=== PATIENT | female | born 1995 | race Two or more races ===

== ENCOUNTER 2023-09-23 09:43 | Outpatient (CLI) | payer OTHER | END 2023-09-23 09:44 | disposition home or self-care (01) | LOC: PRENATAL 09:43 | PROVIDERS: ATTEND Obstetrics & Gynecology Maternal & Fetal Medicine | DX: O26.843 Uterine size-date discrepancy, third trimester (principal); O36.8130 Decreased fetal movements, third trimester, not applicable or unspecified; O44.03 Complete placenta previa NOS or without hemorrhage, third trimester; Z3A.28 28 weeks gestation of pregnancy ==

== ENCOUNTER → 2023-09-30 09:42 | Outpatient (CLI) | payer OTHER | END | disposition home or self-care (01) | LOC: PRENATAL 09:42 | PROVIDERS: ATTEND Obstetrics & Gynecology Maternal & Fetal Medicine | DX: O36.8130 Decreased fetal movements, third trimester, not applicable or unspecified (principal); O36.5930 Maternal care for other known or suspected poor fetal growth, third trimester, not applicable or unspecified; Z3A.29 29 weeks gestation of pregnancy; O09.513 Supervision of elderly primigravida, third trimester; O36.0930 Maternal care for other rhesus isoimmunization, third trimester, not applicable or unspecified; O99.013 Anemia complicating pregnancy, third trimester ==

== ENCOUNTER 2023-10-14 11:01 | Outpatient (CLI) | payer OTHER | END 2023-10-14 11:02 | disposition home or self-care (01) | LOC: PRENATAL 11:01 | PROVIDERS: ATTEND Obstetrics & Gynecology Maternal & Fetal Medicine | DX: O26.843 Uterine size-date discrepancy, third trimester (principal); O36.8130 Decreased fetal movements, third trimester, not applicable or unspecified; O36.5930 Maternal care for other known or suspected poor fetal growth, third trimester, not applicable or unspecified; Z3A.31 31 weeks gestation of pregnancy; O09.513 Supervision of elderly primigravida, third trimester; O36.0930 Maternal care for other rhesus isoimmunization, third trimester, not applicable or unspecified; O99.013 Anemia complicating pregnancy, third trimester ==

== ENCOUNTER 2023-10-21 08:26 | Outpatient (CLI) | payer OTHER | END 2023-10-21 08:27 | disposition home or self-care (01) | LOC: PRENATAL 08:26 | PROVIDERS: ATTEND Obstetrics & Gynecology Maternal & Fetal Medicine | DX: O36.8199 Decreased fetal movements, unspecified trimester, other fetus (principal); O36.5990 Maternal care for other known or suspected poor fetal growth, unspecified trimester, not applicable or unspecified; O09.519 Supervision of elderly primigravida, unspecified trimester; O36.1999 Maternal care for other isoimmunization, unspecified trimester, other fetus; Z3A.32 32 weeks gestation of pregnancy ==

== ENCOUNTER 2023-10-29 08:38 | Outpatient (CLI) | payer OTHER | END 2023-10-29 08:39 | disposition home or self-care (01) | LOC: PRENATAL 08:38 | PROVIDERS: ATTEND Obstetrics & Gynecology Maternal & Fetal Medicine | DX: O26.843 Uterine size-date discrepancy, third trimester (principal); O36.8130 Decreased fetal movements, third trimester, not applicable or unspecified; O36.5930 Maternal care for other known or suspected poor fetal growth, third trimester, not applicable or unspecified; O09.513 Supervision of elderly primigravida, third trimester; O99.013 Anemia complicating pregnancy, third trimester; O36.0930 Maternal care for other rhesus isoimmunization, third trimester, not applicable or unspecified; Z3A.34 34 weeks gestation of pregnancy ==

== ENCOUNTER → 2023-11-04 08:52 | Outpatient (CLI) | payer OTHER | END | disposition home or self-care (01) | LOC: PRENATAL 08:52 | PROVIDERS: ATTEND Obstetrics & Gynecology Maternal & Fetal Medicine | DX: O26.849 Uterine size-date discrepancy, unspecified trimester (principal); O36.8199 Decreased fetal movements, unspecified trimester, other fetus; O36.5990 Maternal care for other known or suspected poor fetal growth, unspecified trimester, not applicable or unspecified; O09.519 Supervision of elderly primigravida, unspecified trimester; O36.1999 Maternal care for other isoimmunization, unspecified trimester, other fetus; O99.019 Anemia complicating pregnancy, unspecified trimester; Z3A.32 32 weeks gestation of pregnancy ==

== ENCOUNTER 2023-11-21 13:19 | Outpatient (CLI) | payer OTHER | END 2023-11-21 13:20 | disposition home or self-care (01) | LOC: PRENATAL 13:19 | PROVIDERS: ATTEND Obstetrics & Gynecology Maternal & Fetal Medicine | DX: O26.849 Uterine size-date discrepancy, unspecified trimester (principal); O36.8199 Decreased fetal movements, unspecified trimester, other fetus; O36.5990 Maternal care for other known or suspected poor fetal growth, unspecified trimester, not applicable or unspecified; O09.519 Supervision of elderly primigravida, unspecified trimester; O36.1999 Maternal care for other isoimmunization, unspecified trimester, other fetus; O99.019 Anemia complicating pregnancy, unspecified trimester; Z3A.36 36 weeks gestation of pregnancy ==

== ENCOUNTER 2023-12-09 07:34 | Inpatient (IN) | payer OTHER ==
[~2023-12-09] VITALS: Ht 165.1 cm; Wt 2.3 kg
[2023-12-09 08:07] VITALS: BP 125/81
[2023-12-09] MEDS ORDERED: IRON325 MG PO (08:35)
[2023-12-09] MEDS ORDERED: PRENATAL + DHA1 EACH PO (08:35)
[2023-12-09] MEDS ORDERED: MISOPROSTOL 25 MCG/4 ML GEL.W.APPL VAG NR (09:00)
[2023-12-09 09:23] LABS: URINE APPEARANCE Cloudy; URINE BILIRRUBIN Negative (NEGATIVE); URINE BLOOD Negative; URINE COLOR Yellow; URINE GLUCOSE Negative (NEGATIVE); URINE KETONE Negative (NEGATIVE); URINE LEUKOCYTE Large; URINE NITRATE Negative; URINE PROTEIN Trace (NEGATIVE)
[2023-12-09 09:25] LABS: HEMATOCRIT 29.3 % (36.0-45.00); MEAN CELL VOLUME 80.8 fL (80.00-100.00); MEAN CORPUSCULAR HGB CONC 33.2 g/dl (32.0-36.0); PLATELET COUNT 289 K/uL (150-450); RED BLOOD COUNT 3.63 M/uL (4.00-6.00); RED CELL DISTRIBUTION WIDTH 15.4 % (11.5-14.5)
[2023-12-09 09:27] LABS: URINE BACTERIA 3888.3 uL (0.0-1933); URINE EPITHELIAL CELLS 42.6 uL (0.0-38.8); URINE RBC 6.5 uL (0.0-20.8); URINE WBC 126.3 uL (0.0-23.2)
[2023-12-09 09:35] LABS: HEMOGLOBIN 9.7 g/dL (12.0-15.00); MEAN CORPUSCULAR HEMOGLOBIN 26.7 pg (27.00-32.0)
[2023-12-09 09:47] LABS: INR 0.95; PARTIAL THROMBOPLASTIN TIME 26.6 SECONDS (22.0-34.0); PROTHROMBIN TIME 10.4 SECONDS (9.0-11.5)
[2023-12-09 10:15] LABS: URINE CAST 1.06 uL (0.0-1.40)
[2023-12-09 10:17] LABS: URINE CRYSTALS FEW /HPF
[2023-12-09 10:18] LABS: URINE YEAST FEW /hpf
[2023-12-09] MEDS ORDERED: MORPHINE SULFATE 4 MG/ML CARTRIDGE IV ONE (13:15)
[2023-12-09] MEDS ORDERED: OXYTOCIN 500 ML IV SCH (13:15)
[2023-12-09] MEDS ORDERED: MISOPROSTOL 25 MCG/4 ML GEL.W.APPL VAG ONE (13:15)
[2023-12-09 15:21] VITALS: BP 128/74
[2023-12-09 17:55] VITALS: BP 124/61
[2023-12-09] MEDS ORDERED: MORPHINE SULFATE 4 MG/ML VIAL IV ONE (18:15)
[2023-12-09 20:45] VITALS: BP 126/64
[2023-12-09 23:46] VITALS: BP 120/66
[2023-12-10] MEDS ORDERED: MEPERIDINE HCL/PF 50 MG/ML VIAL IM PRN (01:30)
[2023-12-10] MEDS ORDERED: PROMETHAZINE HCL 50 MG/ML AMPUL IM PRN (01:30)
[2023-12-10] MEDS ORDERED: ERYTHROMYCIN BASE OPHT 1GM EACH TUBE OP ONE (02:15)
[2023-12-10] MEDS ORDERED: OXYTOCIN 10 UNITS/ML VIAL IV ONE (02:15)
[2023-12-10 05:16] VITALS: BP 108/66
[2023-12-10 08:53] VITALS: BP 117/70
[2023-12-10 11:21] LABS: HEMATOCRIT 28.1 % (36.0-45.00); HEMOGLOBIN 9.3 g/dL (12.0-15.00); MEAN CELL VOLUME 81.3 fL (80.00-100.00); MEAN CORPUSCULAR HEMOGLOBIN 26.9 pg (27.00-32.0); MEAN CORPUSCULAR HGB CONC 33.1 g/dl (32.0-36.0); PLATELET COUNT 281 K/uL (150-450); RED BLOOD COUNT 3.46 M/uL (4.00-6.00); RED CELL DISTRIBUTION WIDTH 15.4 % (11.5-14.5)
[2023-12-10] MEDS ORDERED: OxyCODONE HCL/APAP UD (PERCOCET) PO PRN (13:30)
[2023-12-10 13:39] VITALS: BP 107/73
[2023-12-10 16:04] VITALS: BP 116/67
[2023-12-11 01:43] VITALS: BP 123/83
[2023-12-11 08:00] VITALS: BP 117/77
[2023-12-11] MEDS ORDERED: OxyCODONE HCL/APAP UD (PERCOCET) PO PRN (08:00)
[2023-12-11] MEDS ORDERED: PNV,CALCIUM 72/IRON/FOLIC ACID 1 TAB TABLET PO SCH (09:00)
[2023-12-11] MEDS ORDERED: DOCUSATE SODIUM 100MG CAP PO SCH (09:00)
[2023-12-11] MEDS ORDERED: SIMETHICONE 125 MG CAPSULE PO SCH (09:00)
[2023-12-11 16:00] VITALS: BP 123/70
[2023-12-12 01:27] VITALS: BP 100/65
[2023-12-12 08:42] VITALS: BP 119/73
== END 2023-12-12 17:12 | disposition home or self-care (01) | DRG 788 ==
LOC: LDR 07:34 → OB/GYN 07:34 → LDR 12:44 → OB/GYN 12-10 02:43
PROVIDERS: ADMIT Obstetrics & Gynecology; ATTEND Obstetrics & Gynecology
PROC: 10D00Z1 Extraction of Products of Conception, Low, Open Approach (ICD-10-PCS; principal; 2023-12-09)
PROC: 4A1HXCZ Monitoring of Products of Conception, Cardiac Rate, External Approach (ICD-10-PCS; 2023-12-09)
PROC: 3E033VJ Introduction of Other Hormone into Peripheral Vein, Percutaneous Approach (ICD-10-PCS; 2023-12-09)
PROC: 3E0P7VZ Introduction of Hormone into Female Reproductive, Via Natural or Artificial Opening (ICD-10-PCS; 2023-12-09)
DX: O36.5930 Maternal care for other known or suspected poor fetal growth, third trimester, not applicable or unspecified (principal); O62.1 Secondary uterine inertia; Z3A.38 38 weeks gestation of pregnancy; Z20.822 Contact with and (suspected) exposure to COVID-19; Z37.0 Single live birth